=== PATIENT | female | born 1960 | race Caucasian/White ===

== ENCOUNTER 2016-05-02 18:27 | Emergency (ER) | payer MEDICARE, MEDICAID ==
[~2016-05-02] VITALS: Ht 162.6 cm; Wt 64.1 kg
[~2016-05-02 18:27] MED LIST: ALBU2.5V4 INH; ALBU6.7H INH; CEPH500C PO; CYCL10TA9 PO; HYDR-3797 PO; HYDR50TA76 PO; NICO1PAT6 TOPICAL; OXYC10TA8 PO; OXYC1TAB24 PO; WARF3TAB7 PO
[2016-05-02 18:30] VITALS: BP 125/91; PULSE 89; RESP 20; O2SAT 100
--- NOTE | 2016-05-02 18:32 | ED.REPORT ---
HPI-Extremity Problem Lower Date of Service May 02, 2016 ED Provider: Jalil Burger DO This patient is a 55 year old female with a history of substance abuse, bilateral hip replacement, multiple joint replacements, and back surgery brought in by EMS with a suspected L hip dislocation. Pt. states, "I went to stand from my reclining chair, felt my L hip pop. My dog was behind me and I turned my L hip wrong. I knew it was horrible." Nursing Notes Stated Complaint: HIP DISLOCATION Chief Complaint: Extremity Trauma Nursing Notes Reviewed: Yes Allergies: Coded Allergies: latex (Verified Allergy, Unknown, rash, 01/07/14) sulfamethoxazole (Verified Adverse Reaction, Mild, mild itching, 02/20/16) trimethoprim (Verified Adverse Reaction, Mild, mild itching, 02/20/16) TAPE (Verified Adverse Reaction, Unknown, 02/20/16) Scheduled Cephalexin (Cephalexin) 500 Mg Capsule 500 MG PO QID Nicotine 21 mg/24 hr Patch (Nicotine 21 mg/24 hr Patch) 1 Each Patch.td24 1 PATCH TOPICAL DAILY Warfarin Sodium (Warfarin Sodium) 3 Mg Tablet 4 MG PO DAILY Scheduled PRN Albuterol Neb Soln (Albuterol Neb Soln) 2.5 Mg/3 Ml Vial.neb 2.5 MG INH PRN For Shortness of Breath Albuterol Sulfate (Proventil HFA Inhaler) 6.7 Gm Hfa.aer.ad 2 PUFFS INH PRN For Shortness of Breath Cyclobenzaprine (Cyclobenzaprine) 10 Mg Tablet 10 MG PO TID PRN PRN For Spasm Hydroxyzine HCl (HydrOXYzine Hcl) 50 Mg Tablet 50 MG PO TID PRN PRN For Itching Hydroxyzine Pamoate (HydrOXYzine Pamoate) 25 Mg Capsule 25 MG PO Q6H PRN PRN For Itching oxyCODONE (oxyCODONE) 10 Mg Tablet 10 MG PO Q4H PRN PRN For Pain oxyCODONE-Acetaminophen 5-325 mg (oxyCODONE-Acetaminophen 5-325 mg) 1 Each Tablet 1-2 TAB PO Q4H PRN PRN For Pain oxyCODONE-Acetaminophen 5-325 mg (oxyCODONE-Acetaminophen 5-325 mg) 1 Each Tablet 1-2 TAB PO Q6H PRN PRN For Pain General Time Seen by MD: 18:31 Chief Complaint Hip injury left Hx Obtained From: Patient, EMS Arrived By: Ambulance Onset Occurred: Just prior to arrival Symptom Duration: Since onset Caused by: Accidental Location: : Hip left Quality: Painful Severity: Current: Severe Severity: Maximum: Severe Recent Healthcare: Recent doctor visit, Recent hospitalization Similar Sx Previous: Yes Past Medical History Past Medical History Notes: PCP: Dr. Lan Past Medical History COPD Right arm DVT s/p picc line insertion Arthritis Pneumothorax Reports: Asthma Past Surgical History Bilateral hip replacement multiple joint replacements back surgery Smoking History Current Every Day Smoker, Unknown if Ever Smoker Social History Opioid dependence in 2013 Other Social History: Good social support, Local resident Ambulatory Status Walker Review of Systems Basic Review of Systems Eyes: Vision NL, No discharge ENT: Hearing NL, No pain Psychiatric: Normal thought content Musculoskeletal: Reports: Joint pain (hip) Complete sys rev & neg: except as marked. Physical Exam Initial Vital Signs Vital Signs (First) Date Time Temp Pulse Resp B/P Pulse Ox O2 Delivery O2 Flow Rate FiO2 05/02/16 18:30 37.0 89 20 125/91 100 Room Air 05/02/16 21:15 4 Initial VS: Reviewed Head / Eyes: Atraumatic, Normocephalic, PERRL Neck: Supple, Non-tender, Full range of motion Cardiovascular: Regular rate & rhythm, Heart sounds normal, Intact distal pulses Abdomen / GI: Soft, Non-tender Upper Extremities: Vascular intact, Neuro intact Skin: Warm, Dry, No cyanosis Neurologic: Alert, Oriented Psychiatric: Mood/affect normal, Behavior normal, Normal thought content Left Hip: Positive: Leg externally rotated, Leg shortened L hip superior dislocation R hip posterior operative changes Ankle / Foot: Atraumatic Alertness: Positive: Sedated Appearance / Presentation: Positive: Frail, In pain Thin Respiratory / Chest: Atraumatic, Breath sounds NL, Breath sounds = bilat, No respiratory distress Dyspneic Interpretation & Diagnostics Lab Results Interpretation Result Diagram: 05/02/16194405/02/161944 Test 05/02/16 19:45 White Blood Count 7.3th/mm3 (3.8-10.1) Red Blood Count 4.09mil/mm3 (3.90-5.20) Hemoglobin 10.2g/dL (12.0-15.6) Hematocrit 32.9% (35.0-46.0) Mean Corpuscular Volume 80.4fL (81-100) Mean Corpuscular Hemoglobin 24.9pg (27.0-35.0) Mean Corpuscular Hemoglobin Concent 31.0% (32.0-37.0) Red Cell Distribution Width 17.6% (12.3-15.4) Platelet Count 311bil/L (150-400) Neutrophils (%) (Auto) 63.5% (40-74) Lymphocytes (%) (Auto) 25.2% (14-46) Monocytes (%) (Auto) 7.8% (4-12) Eosinophils (%) (Auto) 3.0% (0-5) Basophils (%) (Auto) 0.4% (0-3) Prothrombin Time 10.4sec (8.1-12.5) Prothromb Time International Ratio 0.97ratio Sodium Level 136mEq/L (134-144) Potassium Level 4.7mEq/L (3.5-5.2) Chloride Level 100mEq/L (97-108) Carbon Dioxide Level 24mmol/L (18-29) Blood Urea Nitrogen 11mg/dL (6-24) Creatinine 0.55mg/dL (0.57-1.00) Estimat Glomerular Filtration Rate 165mL/min (>59) Glucose Level 106mg/dL (60-99) Calcium Level 8.6mg/dL (8.5-10.1) Total Bilirubin 0.2mg/dL (0.0-1.2) Aspartate Amino Transf (AST/SGOT) 36U/L (0-50) Alanine Aminotransferase (ALT/SGPT) 28U/L (0-32) Alkaline Phosphatase 115U/L (25-150) Total Protein 7.4g/dL (6.4-8.4) Albumin 3.4g/dL (3.4-5.0) Hold Lutz Top Tube Received (Received) Pulse Oximetry Interpretation Pulse Oximetry Interpretation: 100% on room air Pulse Oximetry: Pulse Ox normal X-Ray Interpretation Xray Interpretation: IMPRESSION: Dislocated left hip prosthesis. Dictated by: Minnie Quesada MD, PhD on 05/02/2016 at 19:52 X-Ray Ordered: Hip left Interpretation / Wet Read by: Interpret - Radiologist Interpretation: Dislocation Xray Interpretation: IMPRESSION: Successful closed reduction of dislocated left hip prosthesis. Dictated by: Minnie Quesada MD, PhD on 05/02/2016 at 21:13 X-Ray Ordered: Hip left Interpretation / Wet Read by: Interpret - Radiologist Xray Interpretation: IMPRESSION: Dislocated left hip prosthesis. Dictated by: Minnie Quesada MD, PhD on 05/02/2016 at 19:52 X-Ray Ordered: Pelvis Interpretation / Wet Read by: Interpret - Radiologist Procedures Proced Mod Sedation/Analgesia Time: Procedure Performed by: ED physician Sedation Time: 16 - 37 min Consent / Setup: Informed consent provided, Consent from patient, Time-out performed, Hand hygiene observed, Stand sterile technique, Position supine Indication: Hip reduction Preparation: court monitor applied, Pulse oximeter applied, Constant attendance, IV access established, Eval last meal time, Supplemental oxygen, Procedure explained VS Prior to Procedure: O2 saturation normal, Heart Rate normal, Respiratory rate normal Airway Exam: Normal facial anatomy, Normal neck anatomy, Normal anatomy CVS/Resp Exam: Normal breath sounds Neuro Exam: Alert, Anxious Sedation: Sedation: Ketamine, Sedation: Propofol ASA Classification: 1 normal healthy patient Response During Procedure: Handled secretions adeq, Maintained airway well, Oxygenation stable, Sedation appropriate, Vital signs stable Complications During/After: None Reversal: None required Mental Status After Procedure: Alert, Oriented X3, Response to verbal stim Attestation: I performed procedure, I performed sedation Reduction Post Dislocation Hip adduction inline traction, 2 attempts Time: Procedure Performed by: ED physician Consent / Timeout / Setup: Informed consent provided, Consent from patient, Time-out performed, Oxygen administered, Pulse oximeter applied, court monitor applied, Hand hygiene observed Procedural Sedation/Analgesia: Sedation: Ketamine, Sedation: Propofol Which Hip and Technique: Left hip Neurovascular: Intact pre-procedure, Intact post-procedure Post-Procedure / Complications: Reduced per examination, Procedure successful ( 2 attempts), X-ray disloc reduced, Condition improved, Tolerated procedure well , Patient stable Re-Eval/Medical Decision Source of Hx: Old records, EMS Re-Evaluation/Progress #1: Time of Eval: Patient Status: Condition unchanged Re-Evaluation/Progress Note: Pt informed of the plan for sedation and hip repair. Pt understands and agrees with the plan. Dislocated hip was not successfully repaired. Will attempt again after portable xray. Re-Evaluation/Progress #2: Time of Eval: 20:08 Patient Status: Condition unchanged Re-Evaluation/Progress Note: 2nd attempt to repair dislocated hip. Hip dislocation repair successful. Adduction inline traction. Re-Evaluation/Progress #3: Time of Eval: 21:45 Patient Status: Pain improved Re-Evaluation/Progress Note: Pt. is awake and alert. She is no longer feeling pain and ready for discharge. Pt. understands and agrees with plan. All questions have been addressed. Consultation #1: Referral / Consult Name: Yousif Reyes MD Consulted With: Orthopedic Call Returned at: 20:15 Network Director: Agrees with eval, Agrees with plan Note: Consulted with Dr. Reyes, orthopedic surgeon, who agrees with plan and eval. Consultation #2: Referral / Consult Name: Yousif eRyes MD Consulted With: Orthopedic Call Returned at: 20:33 Network Director: Agrees with eval, Agrees with plan Note: Notified Dr. Reyes, orthopedic surgeon, of the L hip dislocation repair success. Dr. Reyes recommends knee immobilizer and walker. Consultation #3: Referral / Consult Name: Martin Marie MD Requested Call at: 21:16 Call Returned at: 21:20 Network Director: Agrees with eval, Agrees with plan Note: Consulted with Dr. Swapnil Monaco, pt's orthopedic surgeon, regarding pt.'s case. Dr. Monaco agrees with plan and evaluation. Counseled Regarding: Diagnosis, Lab results, Need for follow-up, When/why to return to ED Discharge & Departure Impression: Primary Impression: Hip dislocation, left Encounter type: initial encounter Qualified Code: S73.005A - Unspecified dislocation of left hip, initial encounter Disposition: Home Discharge Condition All VS Reviewed: Yes Condition: Stable Patient Instructions: Moderate Sedation (ED) Additional Instructions: The left hip was dislocated and successfully reduced. I consulted with your orthopedic surgeon Dr. Monaco. He would like you to wear the knee immobilizer on your left leg until he sees you in follow-up. He wants your to follow all the other instructions he gave you after surgical revision. Call his office tomorrow to set up a follow-up. Do not drive or drink alcohol or take sedating medications tonight. Return if you have any problems or any worsening symptoms. He may take 1-2 Percocet every 4-6 hours tonight. He received IV ketamine, IV fentanyl, IV Versed and IV propofol. Follow-up tomorrow with the methadone clinic. If they drug screen you a make sure they know that we gave you these medications as well as a few Percocet. Do not take any methadone while you are under the influence of the Percocet. Referrals: Masood Lan MD (PCP) Scribe Attestation Portions of this note were transcribed by Alta Molina and Franco Woodruff. I, Dr. Burger personally performed the history, physical exam and medical decision-making ; I reviewed and confirmed the accuracy of the information in the transcribed note. Signed by: Alta Molina and Nneka Tamayo, 05/02/2016 and [id number]. copies to: Masood Lan MD, Todd P DO May 02, 2016 18:32 Abby Molina [Alta] May 02, 2016 18:38 FRANCO WOODRUFF May 02, 2016 21:00
[2016-05-02] MEDS: fentaNYL-PF 50 mCg/mL 2 mL Inj IVPUSH PRN ×2 (18:45→18:56)
[2016-05-02] MEDS ORDERED: Ketamine 10 mg/mL 20 mL Inj IV ONE ×2 (19:25→21:00)
[2016-05-02 19:51] LABS: BASOPHILS % (AUTO) 0.4 % (0-3); MONOCYTES % (AUTO) 7.8 % (4-12); Mean Corpuscular Hemoglobin 24.9 pg (27.0-35.0); Mean Corpuscular Volume 80.4 fL (81-100); NEUTROPHILS % (AUTO) 63.5 % (40-74); Platelet Count 311 bil/L (150-400)
[2016-05-02] MEDS ORDERED: Propofol 10 mg/mL 20 mL Inj ONE (19:53)
--- NOTE | 2016-05-02 19:54 | DRSVH ---
PROCEDURE: X-RAY PELVIS ONE OR TWO VIEWS ([id number]) INDICATIONS: trauma, hip pain,?dislocation TECHNIQUE: 1 view of the lower pelvis acquired. COMPARISON: [facility], CR, XR PELVIS W LATERAL HIP LT, 03/04/2016, 0:06. [facility], CR, XR HIP 2VW RT, 03/14/2016, 15:51. FINDINGS: Bones: Patient is status post left hip arthroplasty. The femoral component of the left hip arthropla sty is dislocated superiorly. Postsurgical sequela noted in the right hip which are stable compared to prior examination. Heterotopic ossifications adjacent to the proximal right femur are stable in a ppearance. Soft tissues: Overlying postoperative changes are noted. No suspicious soft tissue densities. IMPRESSION: Dislocated left hip prosthesis. Dictated by: Minnie Quesada MD, PhD on 05/02/2016 at 19:52 Approved by: Minnie Quesada MD, PhD on 05/02/2016 at 19:52
[2016-05-02] MEDS ORDERED: Propofol 10 mg/mL 20 mL Inj IVPUSH ONE ×2 (19:55→21:00)
[2016-05-02 20:14] LABS: INR 0.97 ratio
--- NOTE | 2016-05-02 20:35 | DRSVH ---
PROCEDURE: X-RAY LEFT HIP, ONE VIEW ([id number]) INDICATIONS: reduction TECHNIQUE: 2 view(s) of the hip acquired. COMPARISON: [facility], CR, XR PELVIS 1 OR 2VW, 05/02/2016, 19:09. FINDINGS: Bones: Patient is status post left hip arthroplasty. Left breast prosthesis remains superiorly dislo cated. Right hip is stable in appearance. Soft tissues: Overlying postoperative changes are noted. No suspicious soft tissue densities. IMPRESSION: Dislocated left hip prosthesis. Dictated by: Minnie Quesada MD, PhD on 05/02/2016 at 20:34 Approved by: Minnie Quesada MD, PhD on 05/02/2016 at 20:34
[2016-05-02 21:15] VITALS: BP 127/51; PULSE 87; RESP 15; O2SAT 98
--- NOTE | 2016-05-02 21:15 | DRSVH ---
PROCEDURE: X-RAY LEFT HIP COMPLETE, MINIMUM TWO VIEWS ([id number]) INDICATIONS: reduction TECHNIQUE: 2 view(s) of the hip acquired. COMPARISON: [facility], CR, XR HIP 1VW LT, 05/02/2016, 20:08. [facility], CR, XR PELVIS 1 OR 2VW, 05/02/2016, 19:09. FINDINGS: Bones: Patient is status post left hip arthroplasty. There is now normal association of the femoral acetabular components of the left hip prosthesis. Soft tissues: Overlying postoperative changes are noted. No suspicious soft tissue densities. IMPRESSION: Successful closed reduction of dislocated left hip prosthesis. Dictated by: Minnie Quesada MD, PhD on 05/02/2016 at 21:13 Approved by: Minnie Quesada MD, PhD on 05/02/2016 at 21:13
[2016-05-02] MEDS ORDERED: _oxyCODONE/APAP 5-325 mg Tablet PO PRN (22:25)
[2016-05-02 22:52] VITALS: BP_SYST 130; RESP 20; O2SAT 99
== END 2016-05-02 22:54 | disposition home or self-care (01) ==
LOC: SED 18:27
DX: T84.021A Dislocation of internal left hip prosthesis, initial encounter (principal); X50.0XXA Overexertion from strenuous movement or load, initial encounter; Y92.009 Unspecified place in unspecified non-institutional (private) residence as the place of occurrence of the external cause; Y93.89 Activity, other specified; Y99.8 Other external cause status; J44.9 Chronic obstructive pulmonary disease, unspecified; J45.909 Unspecified asthma, uncomplicated; F17.200 Nicotine dependence, unspecified, uncomplicated; Z96.643 Presence of artificial hip joint, bilateral; Z79.01 Long term (current) use of anticoagulants; Z88.2 Allergy status to sulfonamides; Z88.1 Allergy status to other antibiotic agents
CPT/HCPCS: 27265; 36415; 72170; 73501; 73502; 80053; 85025; 85610; 94799; 96374; 99152; 99285; J2250; J3010

== ENCOUNTER 2016-06-28 10:49 | Emergency (ER) | payer MEDICARE, MEDICAID ==
[2016-06-28 11:00] VITALS: BP 143/97; PULSE 121; RESP 18; O2SAT 99
[2016-06-28] MEDS ORDERED: 0.9% Sodium Chloride 1,000 ML IV ONE ×2 (12:10→17:00)
--- NOTE | 2016-06-28 12:27 | ED.REPORT ---
HPI-Hip/Pelvis Prob/Inj Date of Service Jun 28, 2016 ED Provider: Hernan Cook PA-C Davina is a 55 old female presents complaining of hip pain. Patient provides extremely tangential history, it is difficult to discern her complaints. She missed to a fall approximately 2 weeks ago resulting in right hip pain. She reports walking with crutches since then a bearing weight on her left hip. She also complains of left hip pain. She reports a history of bilateral total hip arthroplasties as well as infection in the right hip and dislocation. Records indicate several left hip dislocations. She admits a history of IV drug use but denies current IV drug use. Admits recent administration of methadone today. Notably however a syringe was found in her belongings during check-in. Denies fever. Nursing Notes Stated Complaint: LT HIP PAIN Chief Complaint: Extremity Trauma Nursing Notes Reviewed: Yes Allergies: Coded Allergies: latex (Verified Allergy, Unknown, rash, 01/07/14) sulfamethoxazole (Verified Adverse Reaction, Mild, mild itching, 02/20/16) trimethoprim (Verified Adverse Reaction, Mild, mild itching, 02/20/16) TAPE (Verified Adverse Reaction, Unknown, 02/20/16) Scheduled Cephalexin (Cephalexin) 500 Mg Capsule 500 MG PO QID Nicotine 21 mg/24 hr Patch (Nicotine 21 mg/24 hr Patch) 1 Each Patch.td24 1 PATCH TOPICAL DAILY Warfarin Sodium (Warfarin Sodium) 3 Mg Tablet 4 MG PO DAILY Scheduled PRN Albuterol Neb Soln (Albuterol Neb Soln) 2.5 Mg/3 Ml Vial.neb 2.5 MG INH PRN For Shortness of Breath Albuterol Sulfate (Proventil HFA Inhaler) 6.7 Gm Hfa.aer.ad 2 PUFFS INH PRN For Shortness of Breath Cyclobenzaprine (Cyclobenzaprine) 10 Mg Tablet 10 MG PO TID PRN PRN For Spasm Hydroxyzine HCl (HydrOXYzine Hcl) 50 Mg Tablet 50 MG PO TID PRN PRN For Itching Hydroxyzine Pamoate (HydrOXYzine Pamoate) 25 Mg Capsule 25 MG PO Q6H PRN PRN For Itching oxyCODONE (oxyCODONE) 10 Mg Tablet 10 MG PO Q4H PRN PRN For Pain oxyCODONE-Acetaminophen 5-325 mg (oxyCODONE-Acetaminophen 5-325 mg) 1 Each Tablet 1-2 TAB PO Q4H PRN PRN For Pain oxyCODONE-Acetaminophen 5-325 mg (oxyCODONE-Acetaminophen 5-325 mg) 1 Each Tablet 1-2 TAB PO Q6H PRN PRN For Pain General Time Seen by Provider: 11:17 Chief Complaint Hip injury right Past Medical History Past Medical History Notes: PCP: Dr. Lan Past Medical History COPD Right arm DVT s/p picc line insertion Arthritis Pneumothorax Reports: Asthma Past Surgical History Bilateral hip replacement multiple joint replacements back surgery Smoking History Current Every Day Smoker, Unknown if Ever Smoker Social History Opioid dependence in 2013 Other Social History: Good social support, Local resident Ambulatory Status Walker Review of Systems Negative unless stated otherwise in history of present illness Physical Exam General: Cachectic, anxious, moderate distress. Head: Atraumatic, normocephalic. Eyes: No scleral icterus or injection. No discharge. Vision grossly intact. ENT: Voice clear, hearing grossly intact. Respiratory: Regular rate and rhythm. Breath sounds present, clear to auscultation and equal bilaterally. No respiratory distress. No increased work of breathing, speaks in complete sentences. Cardiovascular: Regular rate and rhythm, without murmur, gallop or rub. No pedal edema. Skin: Warm and dry. Left hip: Moderately tender to palpation, scar consistent with total hip arthroplasty, no redness, swelling. Patient resists range of motion. Left leg appears slightly extended and inwardly rotated. DP pulses 1+, and PT pulses not appreciated bilaterally. Brisk capillary refill less than 3 seconds Right hip: Mildly tender to palpation, scar consistent with total hip arthroplasty, no redness, swelling. Patient resists range of motion. DP pulse 1 +, PT pulses not appreciated bilaterally. Brisk capillary refill less than 3 seconds Neurological: Grossly nonfocal. Psychological: Alert and oriented. Speech appropriate, linear and logical. Behavior appropriate. Initial Vital Signs Vital Signs (First) Date Time Temp Pulse Resp B/P Pulse Ox O2 Delivery O2 Flow Rate FiO2 06/28/16 11:00 35.5 121 18 143/97 99 Room Air Initial VS: Reviewed, Vital signs abnormal (tachycardia, elevated blood pressure) Interpretation & Diagnostics Lab Results Interpretation Result Diagram: 06/28/16 1312 06/28/16 1312 Test 06/28/16 13:12 06/28/16 13:15 White Blood Count 11.0th/mm3 (3.8-10.1) Red Blood Count 4.43mil/mm3 (3.90-5.20) Hemoglobin 11.5g/dL (12.0-15.6) Hematocrit 34.7% (35.0-46.0) Mean Corpuscular Volume 78.3fL (81-100) Mean Corpuscular Hemoglobin 26.0pg (27.0-35.0) Mean Corpuscular Hemoglobin Concent 33.1% (32.0-37.0) Red Cell Distribution Width 17.8% (12.3-15.4) Platelet Count 300bil/L (150-400) Neutrophils (%) (Auto) 73.8% (40-74) Lymphocytes (%) (Auto) 15.5% (14-46) Monocytes (%) (Auto) 9.9% (4-12) Eosinophils (%) (Auto) 0.4% (0-5) Basophils (%) (Auto) 0.2% (0-3) Erythrocyte Sedimentation Rate 30mm/hr (0-40) Prothrombin Time 10.9sec (8.1-12.5) Prothromb Time International Ratio 1.02ratio Sodium Level 130mEq/L (134-144) Potassium Level 4.0mEq/L (3.5-5.2) Chloride Level 96mEq/L (97-108) Carbon Dioxide Level 16mmol/L (18-29) Blood Urea Nitrogen 22mg/dL (6-24) Creatinine 0.82mg/dL (0.57-1.00) Estimat Glomerular Filtration Rate 104mL/min (>59) Glucose Level 112mg/dL (60-99) Calcium Level 9.3mg/dL (8.5-10.1) Total Bilirubin 0.5mg/dL (0.0-1.2) Aspartate Amino Transf (AST/SGOT) 84U/L (0-50) Alanine Aminotransferase (ALT/SGPT) 46U/L (0-32) Alkaline Phosphatase 92U/L (25-150) C-Reactive Protein 14.3mg/dL (0.0-0.5) Total Protein 7.6g/dL (6.4-8.4) Albumin 4.1g/dL (3.4-5.0) Hold Lutz Top Tube Received (Received) X-Ray Interpretation Xray Interpretation: PROCEDURE: X-RAY RIGHT HIP COMPLETE, MINIMUM TWO VIEWS ([id number]) INDICATIONS: bilateral hip pain, history of fall IMPRESSION: Overall, grossly unchanged appearance since 03/14/16. Severe deformity proximal right femur and absence of the right femoral head as before. Postsurgical changes in the right hemipelvis. No acute fracture PROCEDURE: X-RAY LEFT HIP COMPLETE, MINIMUM TWO VIEWS ([id number]) INDICATIONS: bilateral hip pain, history of fall IMPRESSION: Dislocated left hip arthroplasty. Procedures Reduction Post Dislocation Hip 100mg propofol, 120mg of ketamine Time: 17:05 Procedure Performed by: ED physician (Dr. Martin) Consent / Timeout / Setup: Informed consent provided, Consent from patient, Time-out performed, Oxygen administered (ETCO2), Pulse oximeter applied, monitoring specialist applied, Hand hygiene observed Procedural Sedation/Analgesia: Sedation: Ketamine, Sedation: Propofol Which Hip and Technique: Left hip Neurovascular: Intact pre-procedure, Intact post-procedure Post-Procedure / Complications: Not reduced per exam, Procedure not successful , Patient stable Re-Eval/Medical Decision Med Decision/Clinical Course Attending note: I saw him personally evaluated this patient. 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 It should be noted that the nurse found a syringe full of a brown substance in the patient's belongings, this is suspicious for likely illicit drug use. She has a recurrent left hip dislocation although in her current state of functioning she is not able to clearly give a time of onset. Her male counterpart in the room so that she spent the last several days at her son's house and suspects that she has been using illegal drugs. Labs are reassuring for occult infection. Hip reduction was attempted under procedural sedation using combination ketamine and propofol without success. The patient will be admitted with plan to go to the operating room tomorrow morning. Difficult to get a history from this patient as she is quite tangential and labile, possibly under the influence of methamphetamines. Discussed case with Dr. Castellanos Consultation #1: Referral / Consult Name: Yousif Reyes MD Call Returned at: 17:52 Supervisor Asbestos Removal: Agrees with eval, Agrees with plan Note: Discussed patient case with Dr. Reyes who reports that the patient had to go to the OR in February to have her hip reduced. Consultation #2: Referral / Consult Name: Yousif Reyes MD Call Returned at: 18:05 Supervisor Asbestos Removal: Agrees with eval, Agrees with plan Note: Discussed patient case with Dr. Reyes who advised to admit the patient. She also reports that during the patient's reduction in the OR, the patient needed to be paralyzed. Consultation #3: Referral / Consult Name: Camron Khanna MD Call Returned at: 18:17 Supervisor Asbestos Removal: Agrees with eval, Agrees with plan, Accepts admit Note: Discussed patient case with Dr. Khanna who accepts patient admit. Discharge & Departure Impression: Primary Impression: Hip dislocation, left Disposition: ADMITTED TO HOSPITAL Referrals: Masood Lan MD (PCP) Scribe Attestation Portions of this note were transcribed by Bryon Burns. I, Dr. Martin personally performed the history, physical exam and medical decision-making; I reviewed and confirmed the accuracy of the information in the transcribed note. Signed by: Nneka Mae, 06/28/2016 1759. Hernan Cook PA-C Jun 28, 2016 12:26 Bryon Burns Jun 28, 2016 17:12 Jude Martin DO Jun 28, 2016 18:42
[2016-06-28 13:22] LABS: BASOPHILS % (AUTO) 0.2 % (0-3); EOSINOPHILS % (AUTO) 0.4 % (0-5); MONOCYTES % (AUTO) 9.9 % (4-12); Mean Corpuscular Volume 78.3 fL (81-100); NEUTROPHILS % (AUTO) 73.8 % (40-74); Platelet Count 300 bil/L (150-400)
[2016-06-28 13:46] LABS: ERYTHROCYTE SEDIMENTATION RATE 30 mm/hr (0-40)
[2016-06-28] MEDS ORDERED: Ketamine 10 mg/mL 20 mL Inj IV ONE ×2 (14:45→16:10)
[2016-06-28] MEDS ORDERED: HYDROmorphone 1 mg/mL Inj IVPUSH PRN (14:55)
--- NOTE | 2016-06-28 15:24 | DRSVH ---
PROCEDURE: X-RAY LEFT HIP COMPLETE, MINIMUM TWO VIEWS ([id number]) INDICATIONS: bilateral hip pain, history of fall TECHNIQUE: 2 view(s) of the hip acquired. COMPARISON: [facility], CR, XR HIP 1VW LT, 05/02/2016, 20:08. [facility], CR, XR HIP 2VW RT, 03/14/2016, 15:51. [facility], CR, XR PELVIS 1 OR 2VW, 05/02/2016, 19:09. [facility], CR, XR HIP 2VW LT, 05/02/2016, 20:18. FINDINGS: Bones: Patient is status post left hip arthroplasty, which is dislocated with the femoral head proje cting superior to the acetabular cup.The visualized bony structures appear intact. No fracture Soft tissues: Overlying postoperative changes are noted. No suspicious soft tissue densities. IMPRESSION: Dislocated left hip arthroplasty. Dictated by: Joesph Hodgson M.D. on 06/28/2016 at 15:21 Approved by: Joesph Hodgson M.D. on 06/28/2016 at 15:23
--- NOTE | 2016-06-28 15:26 | DRSVH ---
PROCEDURE: X-RAY RIGHT HIP COMPLETE, MINIMUM TWO VIEWS ([id number]) INDICATIONS: bilateral hip pain, history of fall TECHNIQUE: 2 views of the hip were acquired. COMPARISON: [facility], CR, XR HIP 2VW RT, 03/14/2016, 15:51. FINDINGS: Bones: Marked chronic deformity of the proximal right femur which appears grossly unchanged. There is extensive right acetabuloplasty, and an acetabular cup appears grossly unchanged in alignment. No de finite acute fractures or dislocations. Posterior spine fixation partially visualized No suspicious bony lesions. The visualized pelvic ring appears intact. Soft tissues: No suspicious soft tissue calcifications or masses. IMPRESSION: Overall, grossly unchanged appearance since 03/14/16. Severe deformity proximal right femur and absen ce of the right femoral head as before. Postsurgical changes in the right hemipelvis. No acute fracture Dictated by: Joesph Hodgson M.D. on 06/28/2016 at 15:24 Approved by: Joesph Hodgson M.D. on 06/28/2016 at 15:25
[2016-06-28 15:47] LABS: INR 1.02 ratio
[2016-06-28] MEDS ORDERED: Propofol 10 mg/mL 20 mL Inj IVPUSH ONE (16:10)
[2016-06-28 17:00] VITALS: BP 145/107; PULSE 71; RESP 20; O2SAT 97
[2016-06-28 18:00] VITALS: BP 130/69; RESP 21; O2SAT 99
[2016-06-28] MEDS ORDERED: HYDROmorphone 0.5 mg/0.5 mL iSecure Syringe IVPUSH ONE (18:05)
--- NOTE | 2016-06-28 18:07 | DRSVH ---
PROCEDURE: X-RAY LEFT HIP, ONE VIEW ([id number]) INDICATIONS: attempted reduction TECHNIQUE: Single views of the hip were acquired. COMPARISON: [facility], CR, XR HIP 2VW LT, 06/28/2016, 14:44. FINDINGS: Bones: The left hip arthroplasty remains posteriorly displaced. Soft tissues: No suspicious soft tissue calcifications or masses. IMPRESSION: Persistent dislocation of the left hip arthroplasty. Dictated by: Esther Jeffries M.D. on 06/28/2016 at 18:04 Approved by: Esther Jeffries M.D. on 06/28/2016 at 18:05
[2016-06-28] MEDS ORDERED: Ondansetron 2 mg/mL 2 mL Inj IVPUSH PRN (19:10)
[2016-06-28] MEDS ORDERED: Alum-Mag Hydrox-Simeth 30 mL Suspension PO PRN (19:10)
[2016-06-28] MEDS ORDERED: Polyethylene Glycol (PEG) 17 Gm Powder PO PRN (19:10)
[2016-06-28] MEDS ORDERED: methadone PO (19:43)
[2016-06-28] MEDS ORDERED: HYDROmorphone 1 mg/mL Inj IM ONE (23:20)
[2016-06-28 23:43] VITALS: BP 130/69; PULSE 71; RESP 21; O2SAT 97; O2SAT 99
--- NOTE | 2016-07-01 13:21 | CONS ---
[address] [address] CONSULTATION REPORT PATIENT: MYCHAL LOPEZ : 1960 MR#: [id number] ADMIT: 06/28/2016 JOB ID: [id number] DATE OF SERVICE: ORTHOPEDIC CONSULTATION- EMERGENCY ROOM - CPT code 54722 06/28/2016 Spent over two hours taking care of patient and arranging transfer CHIEF COMPLAINT: This is a 55-year-old female, who presents to the emergency department with recurrent left total hip dislocation. Of significance, the patient has had multiple surgeries on both hips in the past. She has been treated by Dr. Swapnil Monaco at [facility] in [place]. The patient redislocated today. Emergency department staff tried to relocate the hip but this was unsuccessful. The patient has requested that she be transferred to Dr. Swapnil Monaco at [facility] in [place]. I have contacted the physician and he has agreed to the acceptance of the patient through the emergency department in [facility] in [place]. The patient is neurologically intact. RECENT HISTORY: The patient had left total hip dislocation, February 29, 2016. Dr. Branden Laguna did a closed reduction of the hip dislocation in the operating room requiring muscle relaxation. She was subsequently admitted to the hospital for a couple days and then transferred to [facility] and was placed in a hip abduction brace. She redislocated the hip three days later when she was sitting on the commode. Hip was again relocated. According to the patient's history, evidently she has had numerous surgeries on the left hip, maybe as many as 20, and numerous surgeries on the right hip most, recently on the right one where she had an infection and required removal of the femoral portion of the prostheses. She still has an acetabular cup. ALLERGIES: Include: 1. SULFAMETHOXAZOLE. 2. TRIMETHOPRIM SULFA. 3. TAPE. CURRENT MEDICATIONS: 1. Keflex 500 mg four times a day. 2. Nicotine patch 21 mg patch per day. 3. Coumadin 3 mg alternating with 4 mg daily. PRN medications include: 1. Albuterol nebulizers. 2. Cyclobenzaprine. 3. Hydroxyzine. 4. Hydrochloride. 5. Hydroxyzine pamoate. 6. Oxycodone 5/325. PAST MEDICAL HISTORY: Pertinent for COPD, right arm DVT, status post previous PICC line insertion for infection, arthritis, pneumothorax, and history of asthma. Prior surgeries include multiple surgeries on both hips. Subsequently of the right hip had femoral component removed for chronic infection and the left hip has had multiple dislocations. She has also had spinal surgery with lumbar spinal fusion. SOCIAL HISTORY: Positive for long-term opioid dependence and overall drug usage. The patient does have help at home. She normally ambulates with a walker. REVIEW OF SYSTEMS: HEENT: Patient is not complaining of any blurring of vision or headache. Respiratory: No acute shortness of breath. Cardiovascular: No chest pain. GI: No nausea, vomiting. : No dysuria. Musculoskeletal: Pain in the left leg with a dislocation.Psychiatric- issues with anxiety PHYSICAL EXAMINATION: The patient is a very thin female. I do not have current height or weight, but she is very small with a low body mass and index. Temperature 35.5, pulse 121, respiration 18, blood pressure 143/97, pulse ox of 99. she is anxious and constantly talking about various issues often disjointed in her thought process. Left hip has pain with any motion. Left foot has intact dorsalis pedis and posterior tibial pulses. The left leg is shortened and slightly internally rotated. Right leg is also short but she has had prior removal of the prostheses. X-rays show that the patient has a superior left total hip dislocation with a somewhat vertically positioned acetabular cup with several screws. There is also evidence for sacral fusion with old hardware and on the right hip, she has residual acetabular hardware but the femoral component has been removed. LABORATORY TESTING: White count 11,000, hemoglobin 11.5, hematocrit 34.7, platelet count 300,000. PT 10.9, INR 1.02. Sodium 130, potassium 4.0, chloride 96, CO2 16, BUN 22, creatinine 0.82. Glucose 112, AST 84, ALT 46, C-reactive protein 14.3. Operative report from Dr. Branden Laguna, from February 29, 2016, indicates that the patient was given a general anesthetic with muscle relaxation. He applied longitudinal traction in line with the patient's adducted and flexed hip and the hip easily reduced at that time and stayed reduced in the abducted position. She was placed in a hip abduction brace. Of note, one day prior to the reduction by Dr. Laguna on February 29, 2016, she had a hip dislocation that was reduced in the emergency department, and when she went home, she sat on the commode and proceeded to redislocate. Therefore, Dr. Laguna, after he proceeded with this procedure, opted to place her in a hip abduction brace. This was ordered from [facility]. IMPRESSION: Recurrent left total hip dislocation. PLAN: I have contacted Dr. Swapnil Monaco, who works at [facility] in [place], [place]. He has accepted the patient in transfer. This is as per the patient's request. She will be transferred via ambulance to the emergency department at [facility] in [place].I spent about two hours dealing with this complex patient and arranging her transfer as per her request and answering her numerous questions frequently repeating the answers as her thought process was somewhat disorganized. CC: Dr. Swapnil Monaco in [place], [place], [address] [place] [address], [address], [place], [place], [address], phone [phone]. [facility]. [facility]
== END 2016-06-28 23:34 | disposition other institution (70) ==
LOC: SED 10:49 → UNDOADMOB 19:25 → OSC 19:25 → SED 23:34
DX: T84.021A Dislocation of internal left hip prosthesis, initial encounter (principal); F11.20 Opioid dependence, uncomplicated; Z96.643 Presence of artificial hip joint, bilateral; F17.200 Nicotine dependence, unspecified, uncomplicated; Z86.718 Personal history of other venous thrombosis and embolism; Z79.01 Long term (current) use of anticoagulants; Z88.2 Allergy status to sulfonamides
CPT/HCPCS: 27265; 36415; 73501; 73502; 80053; 82308; 83605; 85025; 85610; 85651; 86140; 94799; 96372; 96374; 96375; 99285; J1170; J1885; J7030

== ENCOUNTER 2016-11-03 15:36 | Emergency (ER) | payer MEDICARE, MEDICAID ==
[~2016-11-03] VITALS: Ht 162.6 cm; Wt 62.3 kg
[~2016-11-03 15:36] MED LIST changes: -CEPH500C PO; -CYCL10TA9 PO; -HYDR-3797 PO; -HYDR50TA76 PO; -NICO1PAT6 TOPICAL; -OXYC10TA8 PO; -OXYC1TAB24 PO; -WARF3TAB7 PO; +methadone PO
[2016-11-03 15:40] VITALS: BP 110/62; PULSE 73; RESP 16; O2SAT 99
--- NOTE | 2016-11-03 16:41 | ED.REPORT ---
HPI-Trauma Minor / Fall Date of Service Nov 03, 2016 ED Provider: Aureliano Soto MD This patient is a 55 year old female with a history of COPD, right arm DVT, substance abuse, bilateral hip replacement, multiple joint replacements, and back surgery c/o right hip pain onset yesterday evening after slipping in her house and landing on her right side. She previously had an infection in the right hip joint, most recently a year ago following a bilateral hip replacement. She was placed on cephalexin and sulfa for the infection. She is currently on methadone but did not dose today. Nursing Notes Stated Complaint: RIGHT HIP PAIN Chief Complaint: Extremity Trauma Nursing Notes Reviewed: Yes Allergies: Coded Allergies: latex (Verified Allergy, Unknown, rash, 01/07/14) TAPE (Verified Adverse Reaction, Unknown, 02/20/16) Scheduled ([methadone]) 75 MG PO QAM Scheduled PRN Albuterol Neb Soln (Albuterol Neb Soln) 2.5 Mg/3 Ml Vial.neb 2.5 MG INH QID PRN PRN For Shortness of Breath Albuterol Sulfate (Proventil HFA Inhaler) 6.7 Gm Hfa.aer.ad 2 PUFFS INH QID PRN PRN For Shortness of Breath General Time Seen by MD: 16:40 Chief Complaint Slipped Hx Obtained From: Patient Arrived By: Walk-in Onset Occurred: Yesterday Symptom Duration: Since onset Caused by: Accidental Context: Occurred at: Home injury Location: Hip right Quality: Painful Severity: Current: Mild Past Medical History Past Medical History Notes: PCP: Dr. Lan Past Medical History COPD Right arm DVT s/p picc line insertion Arthritis Pneumothorax Reports: Asthma Past Surgical History Bilateral hip replacement multiple joint replacements back surgery Smoking History Current Every Day Smoker, Unknown if Ever Smoker Social History Opioid dependence in 2013 Other Social History: Good social support, Local resident Ambulatory Status Walker Review of Systems Musculoskeletal: Reports: Extremity pain, Extremity swelling, Joint pain, Joint swelling Neurologic: Denies: Change LOC, Dizziness, Headache, Lightheaded, Numbness, Syncope Complete sys rev & neg: except as marked. Physical Exam Initial Vital Signs Vital Signs (First) Date Time Temp Pulse Resp B/P Pulse Ox O2 Delivery O2 Flow Rate FiO2 11/03/16 15:40 36.8 73 16 110/62 99 Room Air Initial VS: Reviewed General/Constitutional: Awake, Alert, Cooperative Neck: Atraumatic, Supple Head / Eyes: Atraumatic, Normocephalic ENT: Atraumatic, Airway patent Upper Extremity / MS: Atraumatic, Inspection NL, Full range of motion, No deformity Right Hip: Positive: Tenderness present... surgical scar over right hip do not appreciate any fresh bruising on right hip Skin: Atraumatic, Color NL, No rash Neurologic: Oriented X3, Speech NL Interpretation & Diagnostics X-Ray Interpretation Xray Interpretation: PELIVS X-RAY IMPRESSION: 1. Postsurgical changes and arthroplasties as above. 2. Apparent anatomic alignment of the left hip arthroplasty. However, as noted above, multiple prior dislocations have occurred. If clinical concern persists for dislocation, lateral view is recommended. Dictated by: Kristyn Chaves M.D. on 11/03/2016 at 17:40 Approved by: Kristyn Chaves M.D. on 11/03/2016 at 17:43 X-Ray Ordered: Pelvis Interpretation / Wet Read by: Interpret - Radiologist Re-Eval/Medical Decision Re-Evaluation/Progress #1: Time of Eval: 16:50 Re-Evaluation/Progress Note: Plan for 20mg of oxycodone. Re-Evaluation/Progress #2: Time of Eval: 19:08 Re-Evaluation/Progress Note: Pt rechecked. Counseled Regarding: Diagnosis, Lab results, Need for follow-up, When/why to return to ED Discharge & Departure Impression: Primary Impression: Right hip pain Disposition: Home Discharge Condition All VS Reviewed: Yes Condition: Stable Patient Instructions: Hip Pain (ED) Additional Instructions: Thank you for entrusting us with your care today. Your pelvic x-ray does not show any acute injuries or changes. I am sending you home with pey[facility] Sin. Do not take more then 2 at a time. Do not drink alcohol, drive vehicles, do drugs, or operate heavy machinery while on narcotics. Follow up with your primary care physician in the next week. Keep your methadone appointment tomorrow. We will not replace/supplement pain meds in the future. Return to the Emergency Department if you experience any new or worsening symptoms. I hope you feel better soon! Referrals: Masood Lan MD (PCP) Scribe Attestation Portion of this note were transcribed by Negar Liu. I, Dr. Soto, personally performed the history, physical exam, and medical decision-making: I reviewed and confirmed the accuracy for the information in the transcribed note. Signed by: yasmeen Cortés, 11/03/16 1800 copies to: Masood Lan MD, Donald L MD Nov 03, 2016 16:41 Negar Liu Nov 03, 2016 16:49
--- NOTE | 2016-11-03 17:45 | DRSVH ---
PROCEDURE: X-RAY PELVIS, ONE OR TWO VIEWS ([id number]) INDICATIONS: pelvic pain post fall TECHNIQUE: One view(s) of the pelvis acquired. C arthroplasty is present. OMPARISON: [facility], CR, XR PELVIS W LATERAL HIP LT, 2015, 0:06. [facility], CR, XR PELVIS W LATERAL HIP LT, 02/28/2016, 23:14. [facility], CR, XR HIP 2VW LT, 05/02/2016, 20:18. [facility], CR, XR HIP 2VW LT, 7, 14:44. [facility], CR, XR HIP 1VW LT, 06/28/2016, 17:30. [facility], CR, XR PELVIS 1 OR 2VW, 05/02/2016, 19:09. [facility], CR, XR HIP 2VW RT, 06/28/2016, 14:44. FINDINGS: Bones: Chronic deformity of the proximal right femur as well as right acetabularplasty is unchanged. Partially visualized lower lumbar fixation is also stable. Left hip demonstrates relatively good kimberly omic alignment seen only on frontal view. It is noted that there have been multiple dislocations iden tified with the tip over prior exams. Soft tissues: Visualized bowel gas pattern is normal. No suspicious soft tissue calcifications. IMPRESSION: 1. Postsurgical changes and arthroplasties as above. 2. Apparent anatomic alignment of the left hip arthroplasty. However, as noted above, multiple prior dislocations have occurred. If clinical concern persists for dislocation, lateral view is recommended . Dictated by: Kristyn Chaves M.D. on 11/03/2016 at 17:40 Approved by: Kristyn Chaves M.D. on 11/03/2016 at 17:43
[2016-11-03 18:56] VITALS: BP 134/78; PULSE 76; RESP 17; O2SAT 98
[2016-11-03] MEDS ORDERED: _oxyCODONE/APAP 5-325 mg Tablet PO PRN (19:15)
[2016-11-03 19:29] VITALS: BP 119/60; PULSE 86; RESP 18; O2SAT 98
== END 2016-11-03 19:35 | disposition home or self-care (01) ==
LOC: SED 15:36 → EDBD 15:36 → SED 19:35
DX: M25.551 Pain in right hip (principal); W01.0XXA Fall on same level from slipping, tripping and stumbling without subsequent striking against object, initial encounter; Y93.9 Activity, unspecified; Y92.009 Unspecified place in unspecified non-institutional (private) residence as the place of occurrence of the external cause; Y99.8 Other external cause status; J44.9 Chronic obstructive pulmonary disease, unspecified; J45.909 Unspecified asthma, uncomplicated; F17.200 Nicotine dependence, unspecified, uncomplicated; Z91.040 Latex allergy status; Z86.718 Personal history of other venous thrombosis and embolism; Z96.643 Presence of artificial hip joint, bilateral